=== PATIENT | male | born 1990 | race Caucasian/White ===

== ENCOUNTER 2017-09-22 11:35 | Emergency (ER) | payer SELFPAY ==
--- NOTE | 2017-09-22 12:26 | ER Document Report ---
ED General - General Chief Complaint: Flank Pain Stated Complaint: BACK PAIN Time Seen by Provider: 09/22/17 12:19 Mode of Arrival: Ambulatory Information source: Patient Notes: 27-year-old male presents with right flank pain remains the groin with blood in his urine. Patient notes symptoms initially started on Thursday with flank pain the blood started on Thursday. Patient notes the blood is intermittent. He denies any fevers or chills nausea vomiting or diarrhea TRAVEL OUTSIDE OF THE [place] IN LAST 30 DAYS: No - HPI Onset: Other Onset/Duration: Intermittent, Waxing and waning Quality of pain: Sharp Severity: Mild Pain Level: 1 Associated symptoms: Other Exacerbated by: Other - Urination Relieved by: Denies Similar symptoms previously: No Recently seen / treated by doctor: No - Related Data Allergies/Adverse Reactions: No Known Allergies Allergy (Verified 09/22/17 11:40) Past Medical History - Social History Smoking Status: Never Smoker Cigarette use (# per day): No Chew tobacco use (# tins/day): No Smoking Education Provided: No Frequency of alcohol use: None Drug Abuse: None Family History: Other - No family history of kidney stones Patient has suicidal ideation: No Patient has homicidal ideation: No Renal/ Medical History: Denies: Hx Peritoneal Dialysis Review of Systems - Review of Systems Notes: REVIEW OF SYSTEMS: CONSTITUTIONAL : Denies fever, chills, or sweats. Denies recent illness. EENT: Denies eye, ear, throat, or mouth pain or symptoms. Denies nasal or sinus congestion or discharge. Denies throat, tongue, or mouth swelling or difficulty swallowing. CARDIOVASCULAR: Denies chest pain. Denies palpitations or racing or irregular heart beat. Denies ankle edema. RESPIRATORY: Denies cough, cold, or chest congestion. Denies shortness of breath, difficulty breathing, or wheezing. GASTROINTESTINAL: Admits to right flank pain GENITOURINARY: Admits to blood with urination MUSCULOSKELETAL: Denies back or neck pain or stiffness. Denies joint pain or swelling. SKIN: Denies rash, lesions or sores. HEMATOLOGIC : Denies easy bruising or bleeding. LYMPHATIC: Denies swollen, enlarged glands. NEUROLOGICAL: Denies confusion or altered mental status. Denies passing out or loss of consciousness. Denies dizziness or lightheadedness. Denies headache. Denies weakness or paralysis or loss of use of either side. Denies problems with gait or speech. Denies sensory loss, numbness, or tingling. Denies seizures. PSYCHIATRIC: Denies anxiety or stress. Denies depression, suicidal ideation, or homicidal ideation. ALL OTHER SYSTEMS REVIEWED AND NEGATIVE. Dictation was performed using [employer] voice recognition software PHYSICAL EXAMINATION: GENERAL: Well-appearing, well-nourished and in no acute distress. HEAD: Atraumatic, normocephalic. EYES: Pupils equal round and reactive to light, extraocular movements intact, sclera anicteric, conjunctiva are normal. ENT: Nares patent, oropharynx clear without exudates. Moist mucous membranes. NECK: Normal range of motion, supple without lymphadenopathy LUNGS: Breath sounds clear to auscultation bilaterally and equal. No wheezes rales or rhonchi. HEART: Regular rate and rhythm without murmurs ABDOMEN: Soft, nontender, nondistended abdomen. No guarding, no rebound. No masses appreciated. Musculoskeletal: Normal range of motion, no pitting or edema. No cyanosis. NEUROLOGICAL: Cranial nerves grossly intact. Normal speech, normal gait. Normal sensory, motor exams PSYCH: Normal mood, normal affect. SKIN: Warm, Dry, normal turgor, no rashes or lesions noted. Physical Exam - Vital signs Vitals: Temp Pulse Resp BP Pulse Ox 98.3 F 84 17 133/86 H 96 09/22/17 11:50 09/22/17 11:50 09/22/17 11:50 09/22/17 11:50 09/22/17 11:50 Course - Re-evaluation Re-evalutation: 09/22/17 12:26 Patient has probable kidney stone, CT urinalysis are pending at this time 09/22/17 13:48 Patient's urinalysis is consistent with a kidney stone however but CT did not find any actual imaging of the stone. Patient will be treated as a kidney stone nonetheless and given follow-up with urology for hematuria After performing a Medical Screening Examination, I estimate there is LOW risk for ACUTE APPENDICITIS, BOWEL OBSTRUCTION, ACUTE CHOLECYSTITIS, PERFORATED DIVERTICULITIS, INCARCERATED HERNIA, PANCREATITIS, TESTICULAR TORSION or PERFORATED ULCER, thus I consider the discharge disposition reasonable. Also, there is no evidence or peritonitis, sepsis, or toxicity. I have reevaluated this patient multiple times and no significant life threatening changes are noted. The patient and I have discussed the diagnosis and risks, and we agree with discharging home with close follow-up with the understanding that symptoms and presentations can change. We also discussed returning to the Emergency Department immediately if new or worsening symptoms occur. We have discussed the symptoms which are most concerning (e.g., bloody stool, fever, changing or worsening pain, intractable vomiting - standard verbal up date) that necessitate immediate return. - Vital Signs Vital signs: Temp Pulse Resp BP Pulse Ox 98.9 F 77 18 149/81 H 99 09/22/17 13:40 09/22/17 13:40 09/22/17 13:40 09/22/17 13:40 09/22/17 13:40 - Laboratory Laboratory results interpreted by me: 09/22/17 12:45 Urine Protein 100 H Urine Blood LARGE H - Diagnostic Test Radiology reviewed: Image reviewed, Reports reviewed Discharge - Discharge Clinical Impression: Flank pain Hematuria Qualifiers: Hematuria type: benign essential microscopic Qualified Code(s): R31.1 - Benign essential microscopic hematuria Condition: Stable Disposition: HOME, SELF-CARE Instructions: Abdominal Pain ([facility]), Kidney Stone ([facility]) Prescriptions: Oxycodone HCl [Oxycodone HCl 10 MG Tablet] 1 - 2 tab PO Q6H PRN #15 tablet PRN Reason: PAIN Promethazine HCl [Phenergan 25 mg Tablet] 1 - 2 tab PO Q6H PRN #15 tablet PRN Reason: Referrals: [facility] [Provider Group] - Follow up tomorrow
[2017-09-22 13:11] LABS: APPEARANCE,URINE SLIGHTLY-CLOUDY; BILIRUBIN,URINE NEGATIVE (NEGATIVE); COLOR,URINE YELLOW; GLUCOSE, URINE NEGATIVE (NEGATIVE); KETONES,URINE NEGATIVE (NEGATIVE); LEUKOCYTE ESTERASE,URINE NEGATIVE (NEGATIVE); NITRITE,URINE NEGATIVE (NEGATIVE); PROTEIN,URINE 100 mg/dL (NEGATIVE); URINE SPECIFIC GRAVITY 1.024; UROBILINOGEN,URINE NEGATIVE mg/dL (<2.0)
--- NOTE | 2017-09-22 13:16 | RADIOLOGY REPORT (SQ) ---
EXAM DESCRIPTION: CT LTD RENAL STONE PROTOCOL ON COMPLETED DATE/TIME: 09/22/2017 1:01 pm REASON FOR STUDY: flank pain hematuria COMPARISON: None. TECHNIQUE: CT scan of the abdomen and pelvis performed without intravenous or oral contrast. Images reviewed with lung, soft tissue, and bone windows. Reconstructed coronal and sagittal MPR images revi ewed. All images stored on PACS. All CT scanners at this facility use dose modulation, iterative reconstruction, and/or weight based d osing when appropriate to reduce radiation dose to as low as reasonably achievable (ALARA). [facility]: Dose Right [facility]: CareDose [facility]: Dose Right [facility]: Teradose 4D [facility]: Smart SlideShare RADIATION DOSE: CT Rad equipment meets quality standard of care and radiation dose reduction techniq ues were employed. CTDIvol: 14.2 mGy. DLP: 887 mGy-cm.mGy. LIMITATIONS: None. FINDINGS: LOWER CHEST: No significant findings. No nodules or infiltrates. NON-CONTRASTED LIVER, SPLEEN, ADRENALS: Evaluation limited by lack of IV contrast. No identified sign ificant masses. PANCREAS: No masses. No peripancreatic inflammatory changes. GALLBLADDER: No identified stones by CT criteria. No inflammatory changes to suggest cholecystitis. RIGHT KIDNEY AND URETER: No suspicious masses. Assessment limited by lack of IV contrast. No signif icant calcifications. No hydronephrosis or hydroureter. LEFT KIDNEY AND URETER: No suspicious masses. Assessment limited by lack of IV contrast. No signifi cant calcifications. No hydronephrosis or hydroureter. AORTA AND RETROPERITONEUM: No aneurysm. No retroperitoneal masses or adenopathy. BOWEL AND PERITONEAL CAVITY: No obvious masses or inflammatory changes. No free fluid. APPENDIX: Normal. PELVIS, BLADDER, AND ABDOMINAL WALL:No abnormal masses. No free fluid. Bladder normal. BONES: No significant findings. OTHER: No other significant finding. IMPRESSION: NO SIGNIFICANT OR ACUTE PROCESS IN THE ABDOMEN OR PELVIS. COMMENT: Quality ID # [id number]: Final reports with documentation of one or more dose reduction techniques (e.g., Automated exposure control, adjustment of the mA and/or kV according to patient size, use of iterative reconstruction technique) TECHNICAL DOCUMENTATION: JOB ID: [id number] [employer]- All Rights Reserved Reading location - IP/workstation name: [email or web address]
[2017-09-22 13:41] VITALS: BP 149/81
== END 2017-09-22 13:59 | disposition home or self-care (01) ==
LOC: ER 11:35
DX: R10.9 Unspecified abdominal pain (principal); R31.1 Benign essential microscopic hematuria
CPT/HCPCS: 76380; 81001; 99284

== ENCOUNTER 2017-09-30 09:49 | Emergency (ER) | payer SELFPAY ==
[2017-09-30] MEDS ORDERED: KETOROLAC TROMETHAMINE INJ/PF 30 MG/1 ML SDV IV ONE (11:16)
[2017-09-30 11:27] LABS: ABSOLUTE LYMPHOCYTES (AUTO) 1.4 10^3/uL (0.5-4.7); ABSOLUTE MONOCYTES (AUTO) 0.4 10^3/uL (0.1-1.4); ABSOLUTE NEUT (AUTO) 4.9 10^3/uL (1.7-8.2); BASOPHILS % (AUTO) 0.5 % (0-2); EOSINOPHILS % (AUTO) 0.4 % (0-6); HEMATOCRIT 45.3 % (37.9-51.0); HEMOGLOBIN 15.8 g/dL (13.5-17.0); LYMPHOCYTES % (AUTO) 20.2 % (13-45); MEAN CORPUSCULAR HEMOGLOBIN 28.9 pg (27.0-33.4); MEAN CORPUSCULAR HGB CONC 34.8 g/dL (32.0-36.0); MEAN CORPUSCULAR VOLUME 83 fl (80-97); PLATELET COUNT 231 10^3/uL (150-450); RED BLOOD COUNT 5.46 10^6/uL (4.35-5.55); RED CELL DISTRIBUTION WIDTH 13.3 % (11.5-14.0); SEGMENTED NEUTROPHILS % (AUTO) 72.9 % (42-78); TOTAL CELLS COUNTED % (AUTO) 100 %; WHITE BLOOD COUNT 6.7 10^3/uL (4.0-10.5)
[2017-09-30] MEDS: NORMAL SALINE 1000 ML 1,000 ML IV PRN ×2 (11:32→11:33)
[2017-09-30] MEDS ORDERED: NORMAL SALINE 1000 ML 1,000 ML IV PRN (11:41)
[2017-09-30 11:46] LABS: ALANINE AMINOTRANSFERASE 56 U/L (21-72); ALBUMIN 4.8 g/dL (3.5-5.0); ALKALINE PHOSPHATASE 57 U/L (38-126); ANION GAP 11 (5-19); ASPARTATE AMINO TRANSFERASE 31 U/L (17-59); BILIRUBIN,DIRECT 0.2 mg/dL (0.0-0.4); BILIRUBIN,TOTAL 0.5 mg/dL (0.2-1.3); BLOOD UREA NITROGEN 13 mg/dL (7-20); CALCIUM 9.9 mg/dL (8.4-10.2); CARBON DIOXIDE 29 mmol/L (22-30); CHLORIDE 102 mmol/L (98-107); CREATINE KINASE 212 U/L (55-170); GLUCOSE 96 mg/dL (75-110); LIPASE 45.9 U/L (23-300); POTASSIUM 4.7 mmol/L (3.6-5.0); SODIUM 141.5 mmol/L (137-145); TOTAL PROTEIN 7.4 g/dL (6.3-8.2)
[2017-09-30 12:29] LABS: APPEARANCE,URINE CLEAR; BILIRUBIN,URINE NEGATIVE (NEGATIVE); COLOR,URINE YELLOW; GLUCOSE, URINE NEGATIVE (NEGATIVE); KETONES,URINE NEGATIVE (NEGATIVE); LEUKOCYTE ESTERASE,URINE NEGATIVE (NEGATIVE); NITRITE,URINE NEGATIVE (NEGATIVE); PROTEIN,URINE NEGATIVE (NEGATIVE); UROBILINOGEN,URINE NEGATIVE mg/dL (<2.0)
[2017-09-30 12:47] LABS: URINE AMPHETAMINES SCREEN NEGATIVE; URINE BARBITURATES SCREEN NEGATIVE; URINE BENZODIAZEPINES SCREEN NEGATIVE; URINE COCAINE SCREEN UNCONFIRMED POSITIVE; URINE MARIJUANA (THC) SCREEN NEGATIVE; URINE METHADONE SCREEN NEGATIVE; URINE PHENCYCLIDINE SCREEN NEGATIVE
--- NOTE | 2017-09-30 13:00 | ER Document Report ---
ED General - General Chief Complaint: Flank Pain Stated Complaint: POSSIBLE KIDNEY STONE Time Seen by Provider: 09/30/17 10:56 TRAVEL OUTSIDE OF THE [place] IN LAST 30 DAYS: No - HPI Patient complains to provider of: Abdominal pain hematuria Notes: Patient coming in for abdominal pain hematuria. Patient states she was seen approximately 1 week ago diagnosed with a kidney stone. Patient states he has been taking the prescribed pain medication however pain continues hematuria continues. Patient states hematuria has improved somewhat but still intermittent episodes of peeing blood. Denies any trauma. Denies fevers chills nausea vomiting diarrhea states intermittent abdominal pain is more diffuse occurring in separate areas of the abdomen each time. Patient states is crampy states he has had intermittent blood in his stool however nothing recently. Patient denies a family history of IBS IBD or other GI etiologies. Patient denies alcohol smoking and illicit drug use. Patient does not trauma however states increased physical activity over the last few weeks - Related Data Allergies/Adverse Reactions: No Known Allergies Allergy (Verified 09/30/17 09:59) Past Medical History - Social History Smoking Status: Never Smoker Frequency of alcohol use: None Drug Abuse: Marijuana Family History: Other - No family history of kidney stones Patient has suicidal ideation: No Patient has homicidal ideation: No Renal/ Medical History: Reports: Hx Kidney Stones. Denies: Hx Peritoneal Dialysis Review of Systems - Review of Systems Constitutional: No symptoms reported EENT: No symptoms reported Cardiovascular: No symptoms reported Respiratory: No symptoms reported Gastrointestinal: Abdominal pain Genitourinary: Hematuria Male Genitourinary: No symptoms reported Musculoskeletal: No symptoms reported Skin: No symptoms reported Hematologic/Lymphatic: No symptoms reported Neurological/Psychological: No symptoms reported -: Yes All other systems reviewed and negative Physical Exam - Vital signs Vitals: Temp Pulse Resp BP Pulse Ox 98.8 F 85 18 126/85 H 99 09/30/17 10:16 09/30/17 10:16 09/30/17 10:16 09/30/17 10:16 09/30/17 10:16 Interpretation: Normal - General General appearance: Appears well, Alert - HEENT Head: Normocephalic, Atraumatic Eyes: Normal Pupils: PERRL - Respiratory Respiratory status: No respiratory distress Chest status: Nontender Breath sounds: Normal Chest palpation: Normal - Cardiovascular Rhythm: Regular Heart sounds: Normal auscultation Murmur: No - Abdominal Inspection: Normal Distension: No distension Bowel sounds: Normal Tenderness: Nontender Organomegaly: No organomegaly - Back Back: Normal, Nontender - Extremities General upper extremity: Normal inspection, Nontender, Normal color, Normal ROM , Normal temperature General lower extremity: Normal inspection, Nontender, Normal color, Normal ROM , Normal temperature, Normal weight bearing. No: Vickey's sign - Neurological Neuro grossly intact: Yes Cognition: Normal Orientation: AAOx4 [place] Coma Scale Eye Opening: Spontaneous Mary Coma Scale Verbal: Oriented Mary Coma Scale Motor: Obeys Commands Mary Coma Scale Total: 15 Speech: Normal Motor strength normal: LUE, RUE, LLE, RLE Sensory: Normal - Psychological Associated symptoms: Normal affect, Normal mood - Skin Skin Temperature: Warm Skin Moisture: Dry Skin Color: Normal Course - Re-evaluation Re-evalutation: 09/30/17 14:36 Laboratory studies not show any significant pathology. Patient was positive for opiates and cocaine. Possible reason for abdominal pain and hematuria. Also possible reason would be the patient's increased activity causing slight hematuria or just dark urine which is mistaken for hematuria. Patient was given IV fluids with 2 L eventually need up with the patient giving us a urine sample. Patient was educated to stop using illicit substances. As far as patient's abdominal pain more consistent with possible IBS. Patient would need to follow-up primary care physician will treat him currently at this time with [facility]. Patient was grateful for his care and was discharged home. The patient presents with abdominal pain without signs of peritonitis or other life- threatening or serious etiology. The patient appears stable for discharge and has been instructed to return immediately if the symptoms worsen in any way, or in 8-12hr if not improved for re-evaluation. The patient has been instructed to return if the symptoms worsen or change in any way. - Vital Signs Vital signs: Temp Pulse Resp BP Pulse Ox 97.9 F 66 18 151/79 H 100 09/30/17 13:11 09/30/17 13:11 09/30/17 13:11 09/30/17 13:11 09/30/17 13:11 - Laboratory Result Diagrams: 09/30/17 11:13 09/30/17 11:13 Laboratory results interpreted by me: 09/30/17 11:13 Creatine Kinase 212 H Discharge - Discharge Clinical Impression: Abdominal pain Qualifiers: Abdominal location: unspecified location Qualified Code(s): R10.9 - Unspecified abdominal pain Disposition: HOME, SELF-CARE Instructions: Abdominal Pain ([facility]), Antispasmodics ([facility]), Gastroenterology Additional Instructions: Your laboratory studies today do not show any significant pathology for your hematuria or your abdominal pain. He may have underlying irritable bowel syndrome. We will treat her abdominal pain with Bentyl. I will highly recommend avoiding any illicit substances or drinking excessive alcohol. Please make sure you drink plenty of fluids to stay hydrated return to the ER symptoms worsen Prescriptions: Dicyclomine HCl [Bentyl 20 mg Tablet] 20 mg PO QID #30 tablet Forms: Return to Work
[2017-09-30 13:13] VITALS: BP 151/79
== END 2017-09-30 13:12 | disposition home or self-care (01) ==
LOC: ER 09:49
DX: R10.9 Unspecified abdominal pain (principal); R31.9 Hematuria, unspecified
CPT/HCPCS: 99284; 96361; 96374; 36415; 82550; 83690; 85025; 80053; 81001; 80307; J1885; J7030

== ENCOUNTER 2018-04-12 15:45 | Emergency (ER) | payer SELFPAY ==
[2018-04-12 17:26] VITALS: BP 124/78
[2018-04-12] MEDS ORDERED: NORMAL SALINE 1000 ML 1,000 ML IV ONE (17:44)
--- NOTE | 2018-04-12 17:46 | ER Document Report ---
ED GI/ - General Chief Complaint: Vomiting Stated Complaint: VOMITING, HEAD PRESSURE Time Seen by Provider: 04/12/18 17:37 Mode of Arrival: Ambulatory Notes: Chief complaint: Nausea vomiting History of complain:( obtained from----patient) 28 years old male presents today with nausea vomiting vomited a few times unable to keep anything down for the last few hours, had not had any bowel movement more than 4 days. Uses recreational Percocet. Had headache and general malaise. Denies any blurring of vision earache sore throat neck pain neck stiffness chest pain shortness of breath. Denies any dysuria frequency urgency Onset: Gradual Duration: Last few hours Severity: Moderate Quality: As above Context: As above Exacerbating factor and relieving factors: None REVIEW OF SYSTEMS: CONSTITUTIONAL : Denies fever, chills, or sweats. Denies recent illness. EENT: Denies eye, ear, throat, or mouth pain or symptoms. Denies nasal or sinus congestion or discharge. Denies throat, tongue, or mouth swelling or difficulty swallowing. CARDIOVASCULAR: Denies chest pain. Denies palpitations or racing or irregular heart beat. Denies ankle edema. RESPIRATORY: Denies cough, cold, or chest congestion. Denies shortness of breath, difficulty breathing, or wheezing. GASTROINTESTINAL: Denies distention. Denies nausea, vomiting, or diarrhea. Denies blood in vomitus, stools, or per rectum. Denies black, tarry stools. Denies constipation. GENITOURINARY: Denies difficulty urinating, painful urination, burning, frequency, blood in urine, or discharge. FEMALE GENITOURINARY: Denies vaginal bleeding, heavy or abnormal periods, irregular periods. Denies vaginal discharge or odor. MUSCULOSKELETAL: Denies back or neck pain or stiffness. Denies joint pain or swelling. SKIN: Denies rash, lesions or sores. HEMATOLOGIC : Denies easy bruising or bleeding. LYMPHATIC: Denies swollen, enlarged glands. NEUROLOGICAL: Denies confusion or altered mental status. Denies passing out or loss of consciousness. Denies dizziness or lightheadedness. Denies headache. Denies weakness or paralysis or loss of use of either side. Denies problems with gait or speech. Denies sensory loss, numbness, or tingling. Denies seizures. PSYCHIATRIC: Denies anxiety or stress. Denies depression, suicidal ideation, or homicidal ideation. ALL OTHER SYSTEMS REVIEWED AND NEGATIVE. PHYSICAL EXAMINATION: GENERAL: Well-appearing, well-nourished and in no acute distress. HEAD: Atraumatic, normocephalic. EYES: Pupils equal round and reactive to light, extraocular movements intact, conjunctiva are normal. ENT: Nares patent, oropharynx clear without exudates. Moist mucous membranes. NECK: Normal range of motion, supple without lymphadenopathy LUNGS: Breath sounds clear to auscultation bilaterally and equal. No wheezes rales or rhonchi. HEART: Regular rate and rhythm without murmurs ABDOMEN: Soft, nontender, nondistended abdomen. No guarding, no rebound. No masses appreciated. Examination of genitals-deferred Musculoskeletal: Normal range of motion, no pitting or edema. No cyanosis. NEUROLOGICAL: Cranial nerves grossly intact. Normal speech, normal gait. Normal sensory, motor exams PSYCH: Normal mood, normal affect. SKIN: Warm, Dry, normal turgor, no rashes or lesions noted. Dictation was performed using [employer] voice recognition software TRAVEL OUTSIDE OF THE [place] IN LAST 30 DAYS: No - Related Data Allergies/Adverse Reactions: No Known Allergies Allergy (Verified 04/12/18 15:47) Past Medical History - Social History Smoking Status: Never Smoker Chew tobacco use (# tins/day): No Frequency of alcohol use: None Drug Abuse: None Lives with: Family Family History: Reviewed & Not Pertinent, Other - No family history of kidney stones Patient has suicidal ideation: No Patient has homicidal ideation: No Renal/ Medical History: Reports: Hx Kidney Stones. Denies: Hx Peritoneal Dialysis Review of Systems - Review of Systems Notes: Dictated Physical Exam - Vital signs Vitals: Temp Pulse Resp BP Pulse Ox 99.1 F 105 H 16 124/78 100 04/12/18 17:24 04/12/18 17:24 04/12/18 17:24 04/12/18 17:24 04/12/18 17:24 - Notes Notes: Dictated Course - Vital Signs Vital signs: Temp Pulse Resp BP Pulse Ox 99.1 F 105 H 16 124/78 100 04/12/18 17:24 04/12/18 17:24 04/12/18 17:24 04/12/18 17:24 04/12/18 17:24
--- NOTE | 2018-04-12 18:25 | RADIOLOGY REPORT (SQ) ---
EXAM DESCRIPTION: KUB/ABDOMEN (SINGLE VIEW) COMPLETED DATE/TIME: 04/12/2018 6:05 pm REASON FOR STUDY: Nausea vomiting COMPARISON: None. NUMBER OF VIEWS: One view. TECHNIQUE: Supine radiographic image of the abdomen acquired. LIMITATIONS: None. FINDINGS: BOWEL GAS PATTERN: Normal bowel gas pattern. No dilated loops. CALCIFICATIONS: No suspicious calcifications. SOFT TISSUES: No gross mass or suggestion of organomegaly. HARDWARE: None in the abdomen. BONES: No acute fracture. No worrisome bone lesions. OTHER: No other significant finding. IMPRESSION: NO RADIOGRAPHIC EVIDENCE FOR ACUTE ABDOMINAL DISEASE. TECHNICAL DOCUMENTATION: JOB ID: [id number] [employer]- All Rights Reserved Reading location - IP/workstation name: [email or web address]
== END 2018-04-12 18:52 | disposition left against medical advice (07) ==
LOC: ER 15:45
DX: R11.2 Nausea with vomiting, unspecified (principal)
CPT/HCPCS: 74018; 99281

== ENCOUNTER 2018-10-17 20:53 | Inpatient (IN) | payer SELFPAY ==
[2018-10-17] MEDS ORDERED: RINGERS SOLUTION,LACTATED 1,000 ML IV ONE (22:10)
[2018-10-17] MEDS ORDERED: LIDOCAINE 1%/EPINEPHRINE INJ 20 ML VIAL INJ ONE (22:22)
[2018-10-17] MEDS ORDERED: LIDOCAINE 1% INJ-PF (10 MG/ML) 30 ML SDV INJ ONE (22:22)
[2018-10-17] MEDS ORDERED: KETAMINE HCL INJ 500 MG/10 ML VIAL IV ONE ×2 (22:22→23:01)
[2018-10-17] MEDS ORDERED: VANCOMYCIN HCL INJ 1000 MG VIAL IV ONE (22:23)
[2018-10-17] MEDS ORDERED: CEFTRIAXONE INJ 1000 MG VIAL IV ONE (22:23)
--- NOTE | 2018-10-17 22:36 | RADIOLOGY REPORT (SQ) ---
EXAM DESCRIPTION: XR FOREARM 2 VIEWS COMPLETED DATE/TME: 10/17/2018 21:36 CLINICAL HISTORY: 28 years, Male, swelling COMPARISON: None. NUMBER OF VIEWS: 3 TECHNIQUE: 3 view left forearm LIMITATIONS: None. FINDINGS: Soft tissue swelling along the ulnar aspect of the forearm. No soft tissue gas. No fracture. No radiopaque foreign body IMPRESSION: Soft tissue swelling as above copyright 2010 [employer]- All Rights Reserved
[2018-10-17] MEDS ORDERED: KETAMINE HCL INJ 500 MG/10 ML VIAL ONE (22:42)
[2018-10-17 22:57] LABS: ABSOLUTE EOSINOPHILS # (AUTO) 0.1 10^3/uL (0.0-0.6); ABSOLUTE MONOCYTES (AUTO) 0.7 10^3/uL (0.1-1.4); ABSOLUTE NEUT (AUTO) 7.9 10^3/uL (1.7-8.2); BASOPHILS % (AUTO) 0.3 % (0-2); EOSINOPHILS % (AUTO) 0.5 % (0-6); HEMATOCRIT 34.7 % (37.9-51.0); HEMOGLOBIN 12.2 g/dL (13.5-17.0); LYMPHOCYTES % (AUTO) 18.5 % (13-45); MEAN CORPUSCULAR HEMOGLOBIN 28.3 pg (27.0-33.4); MEAN CORPUSCULAR HGB CONC 35.2 g/dL (32.0-36.0); MEAN CORPUSCULAR VOLUME 80 fl (80-97); MONOCYTES % (AUTO) 6.2 % (3-13); PLATELET COUNT 266 10^3/uL (150-450); RED BLOOD COUNT 4.33 10^6/uL (4.35-5.55); RED CELL DISTRIBUTION WIDTH 13.1 % (11.5-14.0); SEGMENTED NEUTROPHILS % (AUTO) 74.5 % (42-78); TOTAL CELLS COUNTED % (AUTO) 100 %; WHITE BLOOD COUNT 10.6 10^3/uL (4.0-10.5)
[2018-10-17] MEDS ORDERED: ONDANSETRON HCL INJ/PF 4 MG/2 ML SDV IV ONE (23:06)
[2018-10-17] MEDS ORDERED: ONDANSETRON HCL INJ/PF 4 MG/2 ML SDV ONE (23:06)
[2018-10-17 23:07] LABS: ALANINE AMINOTRANSFERASE 30 U/L (21-72); ALBUMIN 4.1 g/dL (3.5-5.0); ALKALINE PHOSPHATASE 83 U/L (38-126); ANION GAP 9 (5-19); ASPARTATE AMINO TRANSFERASE 19 U/L (17-59); BILIRUBIN,DIRECT 0.1 mg/dL (0.0-0.4); BILIRUBIN,TOTAL 0.4 mg/dL (0.2-1.3); BLOOD UREA NITROGEN 15 mg/dL (7-20); CALCIUM 9.5 mg/dL (8.4-10.2); CARBON DIOXIDE 32 mmol/L (22-30); CHLORIDE 98 mmol/L (98-107); GLUCOSE 96 mg/dL (75-110); POTASSIUM 4.4 mmol/L (3.6-5.0); SODIUM 139.3 mmol/L (137-145); TOTAL PROTEIN 7.5 g/dL (6.3-8.2)
--- NOTE | 2018-10-17 23:31 | ER Document Report ---
Doctor's Note Notes: 10/17/18 23:20 I was consulted by the physician bilingual office assistant caring for this patient. I did go to the bedside, patient was noted to have an extensive sialitis from the level of the wrist all the way up to the axilla with associated axillary lymphadenopathy in the left side. Bedside ultrasound was done in the mid forearm where there appeared to be an area of fluctuance that demonstrated a large abscess. Given the size of the abscess as well as the extensive surrounding cellulitis I did not feel the patient was able to tolerate this procedure while awake. The patient was therefore provided ketamine for procedural sedation. The area was incised and drained with copious debridement and irrigation followed by packing. Approximately 20-25 cc of purulent drainage was expressed. Patient tolerated the procedure and sedation well without any complications. Patient has been started on ceftriaxone and vancomycin. The patient will require hospitalization given the degree of cellulitis and the extensive nature of the abscess. Procedures - Conscious Sedation Conscious sedation Time started: 20:53 Time completed: 21:10 Consent obtained: Yes Indication: Incision and drainage of large forearm abscess Prior complications: Procedural sedation Normal healthy pt.: P1. - ASA Classification Airway Evaluation: Normal anatomy Mallampati Classification: Class 1 Used during procedure: Suction available, IV access obtained, Pulse ox on pt., compliance monitor on pt. Medications administered: Ketamine Reversal agents: None I personally performed/intraservice time: Sedation, Procedure Complications: No - Incision and Drainage Left Arm Type: Complex Anesthetic type: 1% Lidocaine w/epi mL's of anesthetic: 8 Blade size: 11 I&D procedure: Chlorprep applied, Iodoform packing placed, Sterile dressing applied Incision Method: Incision made by scalpel Amount/type of drainage: 20-25 cc purulent drainage
--- NOTE | 2018-10-17 23:35 | ER Document Report ---
ED Skin Rash/Insect Bite/Abscs - General Chief Complaint: Abscess Stated Complaint: ABSCESS Time Seen by Provider: 10/17/18 21:30 Notes: Patient is a 28-year-old male presents to the emergency department for generalized redness and swelling noted to his left forearm. Patient states he was moving his krill earlier today and thinks he may have scratched his left forearm. Patient states he has noted the redness and swelling had increased in the last 3 hours which is why he presents to the emergency room. Patient does admit to past IV drug use but states he has not used in the past month. Patient's denying any fever, chills. Patient states he did have an abscess like this many years ago on his lower extremity stated he did not have to be admitted nor did he have to have IV antibiotics for same. Past medical history: None Medications: None Allergies: None TRAVEL OUTSIDE OF THE [place] IN LAST 30 DAYS: No - Related Data Allergies/Adverse Reactions: No Known Allergies Allergy (Verified 04/12/18 15:47) Past Medical History - General Information source: Patient - Social History Smoking Status: Never Smoker Frequency of alcohol use: None Drug Abuse: Heroin, Prescription drugs Family History: Reviewed & Not Pertinent, Other - No family history of kidney stones Patient has suicidal ideation: No Patient has homicidal ideation: No Renal/ Medical History: Reports: Hx Kidney Stones. Denies: Hx Peritoneal Dialysis Review of Systems - Review of Systems Constitutional: denies: Fever EENT: No symptoms reported Cardiovascular: No symptoms reported Respiratory: No symptoms reported Gastrointestinal: No symptoms reported Genitourinary: No symptoms reported Male Genitourinary: No symptoms reported Musculoskeletal: See HPI Skin: See HPI Hematologic/Lymphatic: No symptoms reported Neurological/Psychological: No symptoms reported Physical Exam - Vital signs Vitals: Temp Pulse Resp BP Pulse Ox 98.9 F 115 H 19 141/95 H 98 10/17/18 21:09 10/17/18 21:09 10/17/18 21:09 10/17/18 21:09 10/17/18 21:09 - Notes Notes: GENERAL: Alert, interacts well. No acute distress. HEAD: Normocephalic, atraumatic. EYES: Pupils equal, round, and reactive to light. Extraocular movements intact. ENT: Oral mucosa moist, tongue midline. NECK: Full range of motion. Supple. Trachea midline. LUNGS: Clear to auscultation bilaterally, no wheezes, rales, or rhonchi. No respiratory distress. HEART: Regular rate and rhythm. No murmur ABDOMEN: Soft, non-tender. Non-distended. Bowel sounds present in all 4 quadrants. EXTREMITIES: Moves all 4 extremities spontaneously. normal radial and dorsalis pedis pulses bilaterally. No cyanosis. Erythema and swelling noted left middle medial forearm measuring 15 cm x 15cm with erythema noted slightly traveling towards axillary region. FROM Left elbow and wrist. BACK: no cervical, thoracic, lumbar midline tenderness. No saddle anesthesia, normal distal neurovascular exam. NEUROLOGICAL: Alert and oriented x3. Normal speech. cranial nerves II through XII grossly intact PSYCH: Normal affect, normal mood. SKIN: Warm, dry, normal turgor. Course - Re-evaluation Re-evalutation: Patient presents to the emergency department with an extensive abscess noted to his left forearm. Discussed this case with my attending Dr. Freire who did a bedside ultrasound. Dr. Freire recommends conscious sedation with incision and drain at bedside. Also discussed IV antibiotic use and admission for continued IV antibiotic care. Surgeon Dr. Holley was contacted and has come to the emergency department to evaluate the patient. States he will admit the patient for continued care and take him to the operating room for continued debridement. - Vital Signs Vital signs: Temp Pulse Resp BP Pulse Ox 98 F 94 14 112/60 95 10/18/18 06:49 10/18/18 07:04 10/18/18 07:04 10/18/18 07:04 10/18/18 07:04 - Laboratory Result Diagrams: 10/17/18 22:39 10/17/18 22:39 Laboratory results interpreted by me: 10/17/18 10/17/18 22:39 22:39 WBC 10.6 H RBC 4.33 L Hgb 12.2 L Hct 34.7 L Carbon Dioxide 32 H Procedures - Incision and Drainage forearm Type: Simple Anesthetic type: 1% Lidocaine mL's of anesthetic: 10 Blade size: 11 I&D procedure: Betadine prep applied, Iodoform packing placed, Sterile dressing applied Incision Method: Incision made by scalpel Amount/type of drainage: Copious purulent Discharge - Discharge Clinical Impression: Abscess Cellulitis Qualifiers: Site of cellulitis: extremity Site of cellulitis of extremity: upper extremity Laterality: left Qualified Code(s): L03.114 - Cellulitis of left upper limb Condition: Stable Disposition: ADMITTED INPATIENT Admitting Provider: Surgicalist - Dr. Holley Unit Admitted: Surgical Floor
[2018-10-18] MEDS ORDERED: KETAMINE HCL INJ 500 MG/10 ML VIAL IV ONE (00:15)
[2018-10-18] MEDS ORDERED: DEXTROSE 40% GEL 15 GM TUBE PO PRN ×2 (00:51)
[2018-10-18] MEDS ORDERED: POTASSI CL 20 MEQ/1/2NS 1L 20 MEQ/1,000 ML RTUINJ IV PRN (00:51)
[2018-10-18] MEDS ORDERED: GLUCAGON,HUMAN RECOMB 1 MG INJ SUBCUT PRN (00:51)
[2018-10-18] MEDS ORDERED: DEXTROSE 50%-WATER 25 GM/50 ML DISP.SYRIN IV PRN ×2 (00:51)
--- NOTE | 2018-10-18 00:51 | PDOC CONSULTATION ---
Consultation Consult Date: 10/18/18 Attending physician:: NIMA NEWBY Consult reason:: left arm abscess History of Present Illness Admission Date/PCP: 10/17/18 23:41 History of Present Illness: RIP BERTRAND is a 28 year old male with hx of ivda c/o swelling in left arm starting approx 12hrs prior to admission in er. c/o pain and decreased and fever and reddness of left forarm denies any recent injections however states he did inject into left arm approx 2 wks ago Past Medical History Cardiac Medical History: Reports: None Pulmonary Medical History: Reports: None EENT Medical History: Reports: None Neurological Medical History: Reports: None Past Surgical History Past Surgical History: Reports: None Social History Smoking Status: Never Smoker Family History Family History: Reviewed & Not Pertinent, Other - No family history of kidney stones Parental Family History Reviewed: No Children Family History Reviewed: No Sibling(s) Family History Reviewed.: No Medication/Allergy Home Medications: Oxycodone HCl [Oxycodone HCl 10 MG Tablet] 1 - 2 tab PO Q6H PRN #15 tablet 09/22/17 Promethazine HCl [Phenergan 25 mg Tablet] 1 - 2 tab PO Q6H PRN #15 tablet 09/22/17 Dicyclomine HCl [Bentyl 20 mg Tablet] 20 mg PO QID #30 tablet 09/30/17 Allergies/Adverse Reactions: No Known Allergies Allergy (Verified 04/12/18 15:47) Review of Systems Constitutional: PRESENT: fever(s), weakness Eyes: PRESENT: other - no vision changes Nose, Mouth, and Throat: PRESENT: other - no sore throat Breasts: PRESENT: other - no breast masses Cardiovascular: PRESENT: other - no chest pain Respiratory: PRESENT: other - no cough or sob Gastrointestinal: PRESENT: other - no abd pain Musculoskeletal: PRESENT: other - pain left forarm Neurological: PRESENT: other - no focal weakness Psychiatric: PRESENT: other Endocrine: PRESENT: other - no cold or heat intolerance Hematologic/Lymphatic: PRESENT: other - no easy brusing Physical Exam Vital Signs: Temp Pulse Resp BP Pulse Ox 98.9 F 105 H 17 149/89 H 100 10/17/18 21:09 10/17/18 23:25 10/17/18 23:25 10/17/18 23:25 10/17/18 23:25 Intake & Output 10/16/18 10/17/18 10/18/18 06:59 06:59 06:59 Intake Total 1999 Balance 2000 Weight 105.1 kg General appearance: PRESENT: mild distress Head exam: PRESENT: atraumatic Eye exam: PRESENT: EOMI Ear exam: PRESENT: normal external ear exam Mouth exam: PRESENT: dry mucosa Neck exam: PRESENT: full ROM Respiratory exam: PRESENT: clear to auscultation tanna Cardiovascular exam: PRESENT: RRR Pulses: PRESENT: normal radial pulses, normal femoral pulses Vascular exam: PRESENT: normal capillary refill GI/Abdominal exam: PRESENT: soft Rectal exam: PRESENT: deferred Extremities exam: PRESENT: other - left forearm with large abscess and cellulitis on dorsal/medial forearm with celluliltis extending from wrist to antecubital fossa stellate incision done by er physician small with clotted blood pus draining upon compression of forearm Results Laboratory Results: 10/17/18 22:39 10/17/18 22:39 10/17/18 10/17/18 22:39 22:39 WBC 10.6 H RBC 4.33 L Hgb 12.2 L Hct 34.7 L MCV 80 MCH 28.3 MCHC 35.2 RDW 13.1 Plt Count 266 Seg Neutrophils % 74.5 Lymphocytes % 18.5 Monocytes % 6.2 Eosinophils % 0.5 Basophils % 0.3 Absolute Neutrophils 7.9 Absolute Lymphocytes 2.0 Absolute Monocytes 0.7 Absolute Eosinophils 0.1 Absolute Basophils 0.0 Sodium 139.3 Potassium 4.4 Chloride 98 Carbon Dioxide 32 H Anion Gap 9 BUN 15 Creatinine 0.84 Est GFR ( Amer) > 60 Est GFR (Non-Af Amer) > 60 Glucose 96 Calcium 9.5 Total Bilirubin 0.4 AST 19 ALT 30 Alkaline Phosphatase 83 Total Protein 7.5 Albumin 4.1 Impressions: Forearm X-Ray 10/17/18 21:36 IMPRESSION: Soft tissue swelling as above copyright 2011 [email or web address]- All Rights Reserved Assessment & Plan - Diagnosis (2) Cellulitis Qualifiers: Site of cellulitis: extremity Site of cellulitis of extremity: upper extremity Laterality: left Qualified Code(s): L03.114 - Cellulitis of left upper limb - Plan Summary Plan Summary: left forarm abscess plan for admission for iv abx and incision and drainage of forarm abscess I discussed risks benifits of procedure inculding nerve injury, bleeding ongoing infection weakness of hand post op need for additional surgery he understands and agrees to proceed.
[2018-10-18] MEDS ORDERED: [UNRECOGNIZED DRUG - OTHER] IV ONE (02:00)
[2018-10-18] MEDS ORDERED: CEFTRIAXONE IV ONE (02:00)
[2018-10-18] MEDS ORDERED: DIPH/PERTUSS(ACELL)/TETANUS VAC/PF 0.5 ML SYR (>=10YO) IM ONE (03:28)
[2018-10-18] MEDS: NORMAL SALINE 1000 ML 1,000 ML IV PRN ×2 (04:29→14:47)
[2018-10-18] MEDS ORDERED: BUPIVACAINE HCL 0.25% /EPINEPHRINE INJ/PF 30 ML SDV ONE (05:21)
[2018-10-18] MEDS ORDERED: FENTANYL CITRATE INJ/PF 100 MCG/2 ML AMPUL ONE ×2 (05:27→06:56)
[2018-10-18] MEDS ORDERED: MIDAZOLAM 2 MG/2 ML INJ ONE (05:28)
[2018-10-18] MEDS ORDERED: DEXMEDETOMIDINE INJ 80 MCG/20 ML VIAL IV ONE (05:28)
[2018-10-18] MEDS ORDERED: PROPOFOL INJ 200 MG/20 ML VIAL IV ONE (05:28)
[2018-10-18] MEDS ORDERED: ACETAMINOPHEN 1,000 MG/100 ML RTUPB IV ONE (05:28)
--- NOTE | 2018-10-18 06:38 | Operative Report ---
Nonrecallable Operative Report DATE OF SURGERY: 10/18/18 Operative Report: t PREOPERATIVE DIAGNOSIS: left forarm abscess POSTOPERATIVE DIAGNOSIS: left forarm abscess OPERATION: incision and drainage of left forarm abscess SURGEON: NIMA NEWBY ANESTHESIA: GA COMPLICATIONS: none ESTIMATED BLOOD LOSS: 20cc INTRAOPERATIVE FINDINGS: see dictation PROCEDURE: see dictation
[2018-10-18] MEDS ORDERED: PROMETHAZINE HCL INJ 25 MG/1 ML VIAL IV PRN ×2 (06:42)
[2018-10-18] MEDS ORDERED: FENTANYL CITRATE INJ/PF 100 MCG/2 ML AMPUL IV PRN ×3 (06:42)
[2018-10-18] MEDS ORDERED: DIPHENHYDRAMINE HCL 50 MG/ML VIAL IV PRN (06:42)
[2018-10-18] MEDS ORDERED: ONDANSETRON HCL INJ/PF 4 MG/2 ML SDV IV PRN (06:42)
[2018-10-18] MEDS ORDERED: MEPERIDINE HCL/PF INJ 25 MG/1 ML DISP.SYRIN IV PRN (06:42)
[2018-10-18] MEDS ORDERED: OXYCODONE HCL PO PRN (08:30)
[2018-10-18] MEDS ORDERED: PROMETHAZINE HCL 25 MG TABLET PO PRN (08:30)
[2018-10-18] MEDS: FAMOTIDINE INJ/PF 20 MG/2 ML SDV IV SCH ×2 (09:49→21:11)
[2018-10-18] MEDS ORDERED: DICYCLOMINE HCL 20 MG TABLET PO SCH (10:00)
[2018-10-18] MEDS ORDERED: VANCOMYCIN HCL 1,000 MG in DEXTROSE 5%-WATER 250 ML IV SCH (10:00)
[2018-10-18] MEDS ORDERED: CEFTRIAXONE SODIUM 750 MG in DEXTROSE 5%-WATER 50 ML IV SCH ×2 (10:00→22:00)
[2018-10-18] MEDS ORDERED: LIDOCAINE 2% INJ-PF (20 MG/ML) 2 ML AMPUL ONE (10:18)
[2018-10-18] MEDS ORDERED: DEXAMETHASONE SOD PHOSPHATE INJ 4 MG/1 ML VIAL ONE (10:18)
[2018-10-18] MEDS ORDERED: ONDANSETRON HCL INJ/PF 4 MG/2 ML SDV ONE (10:18)
[2018-10-18] MEDS ORDERED: METOCLOPRAMIDE HCL INJ/PF 10 MG/2 ML SDV ONE (10:18)
[2018-10-18] MEDS ORDERED: KETOROLAC TROMETHAMINE 60 MG/2 ML SDV ONE (10:18)
--- NOTE | 2018-10-18 11:29 | OPERATIVE REPORT E ---
Operative Report NAME: RIP BERTRAND : 1990 AGE: 28Y DATE OF SURGERY: 10/18/2018 ROOM: 406 PREOPERATIVE DIAGNOSIS: Left forearm abscess. POSTOPERATIVE DIAGNOSIS: Left forearm abscess. OPERATIVE PROCEDURE: Incision and drainage left forearm abscess. SURGEON: NIMA NEWBY M.D. PROCEDURE: The patient was brought into the operating room awake, alert, in stable condition, placed on the operative table in supine position, and given general anesthesia. The left arm was prepped and draped in the usual manner for the procedure. On the left lateral forearm, there was a small stellate incision previously made by the emergency room overlying a large subcutaneous abscess. This incision was elongated longitudinally with a 10 blade. Dissection was carried down through the thick and subcutaneous tissue to the muscle fascia. There was a small amount of pus that exuded from the wound and there was some necrotic tissue underneath the subcutaneous tissues and it was dissected away with Bovie cautery. Once this was cleared away, the abscess cavity was well opened for approximately 10 cm longitudinally. The undersurface of the skin and thickened subcutaneous tissue was opened up by digital dissection of the loculations. Once it was wide opened, we copiously irrigated with normal saline, suctioned dry. Hemostasis was obtained with Bovie cautery and the wound was packed with Betadine-soaked gauze sponge and a sterile dressing was applied. Estimated blood loss was 25 mL. Sponge and needle counts were correct x2. The patient was awakened in the operating room, extubated, and transferred to recovery in stable condition. No complications. DICTATING PHYSICIAN: NIMA NEWBY M.D. [id number] PHY#: [id number] ID: [id number] JOB#: [id number] ACCT: [id number] cc:NIMA NEWBY M.D. >
[2018-10-18] MEDS: VANCOMYCIN HCL 1,000 MG in DEXTROSE 5%-WATER 250 ML IV SCH ×2 (14:47→22:05)
[2018-10-18] MEDS: OXYCODONE-ACETAMINOPHEN 5-325 MG TABLET PO PRN (17:47)
[2018-10-18] MEDS: MORPHINE SULFATE 10 MG/ML INJ IV PRN ×2 (19:05→23:52)
[2018-10-18] MEDS: CEFTRIAXONE 1 GM/D5W RTU 1 GM/50 ML RTUPB IV SCH (21:10)
[2018-10-18] MEDS ORDERED: [UNRECOGNIZED DRUG - OTHER] IV SCH (22:00)
[2018-10-18] MEDS ORDERED: CEFTRIAXONE IV SCH (22:00)
[2018-10-19] MEDS: NORMAL SALINE 1000 ML 1,000 ML IV PRN (02:33)
[2018-10-19 05:36] LABS: ABSOLUTE BASOPHILS # (AUTO) 0.1 10^3/uL (0.0-0.2); ABSOLUTE LYMPHOCYTES (AUTO) 1.8 10^3/uL (0.5-4.7); ABSOLUTE MONOCYTES (AUTO) 0.6 10^3/uL (0.1-1.4); ABSOLUTE NEUT (AUTO) 11.5 10^3/uL (1.7-8.2); BASOPHILS % (AUTO) 0.7 % (0-2); EOSINOPHILS % (AUTO) 0.1 % (0-6); HEMOGLOBIN 11.8 g/dL (13.5-17.0); LYMPHOCYTES % (AUTO) 12.9 % (13-45); MEAN CORPUSCULAR HEMOGLOBIN 27.6 pg (27.0-33.4); MEAN CORPUSCULAR HGB CONC 34.7 g/dL (32.0-36.0); MEAN CORPUSCULAR VOLUME 80 fl (80-97); MONOCYTES % (AUTO) 4.1 % (3-13); PLATELET COUNT 290 10^3/uL (150-450); RED BLOOD COUNT 4.28 10^6/uL (4.35-5.55); RED CELL DISTRIBUTION WIDTH 13.1 % (11.5-14.0); SEGMENTED NEUTROPHILS % (AUTO) 82.2 % (42-78); TOTAL CELLS COUNTED % (AUTO) 100 %
[2018-10-19] MEDS: VANCOMYCIN HCL 1,000 MG in DEXTROSE 5%-WATER 250 ML IV SCH ×2 (05:39→14:50)
[2018-10-19] MEDS: OXYCODONE-ACETAMINOPHEN 5-325 MG TABLET PO PRN (05:39)
[2018-10-19 06:18] LABS: ALANINE AMINOTRANSFERASE 26 U/L (21-72); ALBUMIN 3.4 g/dL (3.5-5.0); ALKALINE PHOSPHATASE 69 U/L (38-126); ANION GAP 12 (5-19); ASPARTATE AMINO TRANSFERASE 17 U/L (17-59); BILIRUBIN,DIRECT 0.3 mg/dL (0.0-0.4); BILIRUBIN,TOTAL 0.3 mg/dL (0.2-1.3); BLOOD UREA NITROGEN 12 mg/dL (7-20); CALCIUM 9.2 mg/dL (8.4-10.2); CARBON DIOXIDE 24 mmol/L (22-30); CHLORIDE 104 mmol/L (98-107); GLUCOSE 111 mg/dL (75-110); POTASSIUM 4.3 mmol/L (3.6-5.0); SODIUM 139.9 mmol/L (137-145); TOTAL PROTEIN 6.4 g/dL (6.3-8.2)
[2018-10-19] MEDS: MORPHINE SULFATE 10 MG/ML INJ IV PRN ×3 (08:47→21:47)
--- NOTE | 2018-10-19 09:20 | PDOC PROGRESS REPORT ---
Subjective Progress Note for:: 10/19/18 Subjective:: Some pain at the forearm. Reason For Visit: LEFT FOREARM ABSCESS Physical Exam Vital Signs: Temp Pulse Resp BP Pulse Ox 98.4 F 84 16 111/56 L 100 10/19/18 00:06 10/19/18 00:06 10/19/18 00:06 10/19/18 00:06 10/19/18 00:06 Intake & Output 10/18/18 10/19/18 10/20/18 06:59 06:59 06:59 Intake Total 2997.5 4870 250 Output Total 90 Balance 2907.5 4870 250 Weight 105.1 kg General appearance: PRESENT: no acute distress Respiratory exam: PRESENT: clear to auscultation tanna Cardiovascular exam: PRESENT: RRR Extremities exam: PRESENT: other - Forearm wound looks very clean with no purulent drainage. No surrounding erythema. Results Laboratory Results: 10/19/18 04:45 10/19/18 04:45 10/19/18 10/19/18 04:45 04:45 WBC 14.0 H RBC 4.28 L Hgb 11.8 L Hct 34.0 L MCV 80 MCH 27.6 MCHC 34.7 RDW 13.1 Plt Count 290 Seg Neutrophils % 82.2 H Lymphocytes % 12.9 L Monocytes % 4.1 Eosinophils % 0.1 Basophils % 0.7 Absolute Neutrophils 11.5 H Absolute Lymphocytes 1.8 Absolute Monocytes 0.6 Absolute Eosinophils 0.0 Absolute Basophils 0.1 Sodium 139.9 Potassium 4.3 Chloride 104 Carbon Dioxide 24 Anion Gap 12 BUN 12 Creatinine 0.63 Est GFR ( Amer) > 60 Est GFR (Non-Af Amer) > 60 Glucose 111 H Calcium 9.2 Total Bilirubin 0.3 AST 17 ALT 26 Alkaline Phosphatase 69 Total Protein 6.4 Albumin 3.4 L Impressions: Forearm X-Ray 10/17/18 21:36 IMPRESSION: Soft tissue swelling as above copyright 2011 [employer]- All Rights Reserved Assessment & Plan - Diagnosis (1) Abscess Is this a current diagnosis for this admission?: Yes Plan: Status post debridement. The wound looks very clean. Will start normal saline wet-to-dry dressings and will switch over to wound VAC tomorrow. Wound although not bleeding looks raw and would like to make sure there is good hemostasis before starting the wound VAC.
[2018-10-19] MEDS ORDERED: OXYCODONE-ACETAMINOPHEN 5-325 MG TABLET PO PRN (09:30)
[2018-10-19] MEDS: FAMOTIDINE INJ/PF 20 MG/2 ML SDV IV SCH ×2 (10:20→21:47)
[2018-10-19 14:40] LABS: VANCOMYCIN,TROUGH 8.6 ug/mL (5.0-20.0)
[2018-10-19] MEDS: CEFTRIAXONE 1 GM/D5W RTU 1 GM/50 ML RTUPB IV SCH (21:48)
[2018-10-19] MEDS: VANCOMYCIN HCL 1,500 MG in DEXTROSE 5%-WATER 250 ML IV SCH (21:49)
[2018-10-20] MEDS: VANCOMYCIN HCL 1,500 MG in DEXTROSE 5%-WATER 250 ML IV SCH ×3 (06:33→22:54)
[2018-10-20] MEDS: MORPHINE SULFATE 10 MG/ML INJ IV PRN (07:42)
[2018-10-20] MEDS: FAMOTIDINE INJ/PF 20 MG/2 ML SDV IV SCH ×2 (09:39→22:07)
[2018-10-20] MEDS: OXYCODONE-ACETAMINOPHEN 5-325 MG TABLET PO PRN (09:39)
[2018-10-20] MEDS: IBUPROFEN 800 MG TABLET PO SCH ×2 (13:18→17:13)
--- NOTE | 2018-10-20 17:34 | PDOC PROGRESS REPORT ---
Subjective Progress Note for:: 10/20/18 Reason For Visit: LEFT FOREARM ABSCESS Physical Exam Vital Signs: Temp Pulse Resp BP Pulse Ox 98.4 F 88 18 126/70 H 100 10/20/18 15:23 10/20/18 15:23 10/20/18 15:23 10/20/18 15:23 10/20/18 15:23 Intake & Output 10/19/18 10/20/18 10/21/18 06:59 06:59 06:59 Intake Total 4870 2858 500 Balance 4870 2858 500 Results Laboratory Results: 10/19/18 04:45 10/19/18 04:45 Impressions: Forearm X-Ray 10/17/18 21:36 IMPRESSION: Soft tissue swelling as above copyright 2011 [employer]- All Rights Reserved Assessment & Plan - Diagnosis (1) Abscess Is this a current diagnosis for this admission?: Yes - Plan Summary Plan Summary: This is a 28-year-old male with a forearm abscess, status post incision and drainage. The wound is clean today. Continue with dressing changes. We are currently investigating wound care solutions for home. Partial delayed primary closure may be the patient's best option. Will follow. Continue antibiotics.
[2018-10-20] MEDS: CEFTRIAXONE 1 GM/D5W RTU 1 GM/50 ML RTUPB IV SCH (22:08)
[2018-10-21] MEDS: VANCOMYCIN HCL 1,500 MG in DEXTROSE 5%-WATER 250 ML IV SCH (06:31)
[2018-10-21 06:45] LABS: ABSOLUTE BASOPHILS # (AUTO) 0.1 10^3/uL (0.0-0.2); ABSOLUTE EOSINOPHILS # (AUTO) 0.1 10^3/uL (0.0-0.6); ABSOLUTE LYMPHOCYTES (AUTO) 2.3 10^3/uL (0.5-4.7); ABSOLUTE MONOCYTES (AUTO) 0.6 10^3/uL (0.1-1.4); BASOPHILS % (AUTO) 1.1 % (0-2); EOSINOPHILS % (AUTO) 1.5 % (0-6); HEMATOCRIT 36.2 % (37.9-51.0); HEMOGLOBIN 12.7 g/dL (13.5-17.0); LYMPHOCYTES % (AUTO) 28.9 % (13-45); MEAN CORPUSCULAR HEMOGLOBIN 27.9 pg (27.0-33.4); MEAN CORPUSCULAR HGB CONC 35.1 g/dL (32.0-36.0); MEAN CORPUSCULAR VOLUME 80 fl (80-97); MONOCYTES % (AUTO) 7.1 % (3-13); RED BLOOD COUNT 4.56 10^6/uL (4.35-5.55); SEGMENTED NEUTROPHILS % (AUTO) 61.4 % (42-78); TOTAL CELLS COUNTED % (AUTO) 100 %; WHITE BLOOD COUNT 8.1 10^3/uL (4.0-10.5)
[2018-10-21 07:12] LABS: PLATELET COUNT 242 10^3/uL (150-450)
[2018-10-21] MEDS: IBUPROFEN 800 MG TABLET PO SCH ×3 (07:54→16:44)
[2018-10-21] MEDS: OXYCODONE-ACETAMINOPHEN 5-325 MG TABLET PO PRN (10:14)
[2018-10-21] MEDS: FAMOTIDINE INJ/PF 20 MG/2 ML SDV IV SCH ×2 (10:19→21:55)
[2018-10-21] MEDS: VANCOMYCIN HCL 1,250 MG in DEXTROSE 5%-WATER 250 ML IV SCH ×2 (14:05→21:57)
[2018-10-21] MEDS: CEFTRIAXONE 1 GM/D5W RTU 1 GM/50 ML RTUPB IV SCH (21:56)
[2018-10-22] MEDS: VANCOMYCIN HCL 1,250 MG in DEXTROSE 5%-WATER 250 ML IV SCH (05:49)
[2018-10-22] MEDS: OXYCODONE-ACETAMINOPHEN 5-325 MG TABLET PO PRN (08:01)
[2018-10-22] MEDS ORDERED: LIDOCAINE 1% INJ-PF (10 MG/ML) 30 ML SDV ONE (08:26)
--- NOTE | 2018-10-22 09:03 | PDOC PROGRESS REPORT ---
Subjective Progress Note for:: 10/22/18 Subjective:: left arm feels better Reason For Visit: LEFT FOREARM ABSCESS Physical Exam Vital Signs: Temp Pulse Resp BP Pulse Ox 97.6 F 88 14 173/87 H 100 10/22/18 08:24 10/22/18 08:24 10/22/18 08:24 10/22/18 08:24 10/22/18 08:24 Intake & Output 10/21/18 10/22/18 10/23/18 06:59 06:59 06:59 Intake Total 1723 2135 250 Balance 1723 2135 250 Weight 106.7 kg 105.9 kg General appearance: PRESENT: no acute distress Head exam: PRESENT: normocephalic Eye exam: PRESENT: EOMI Mouth exam: PRESENT: dry mucosa Neck exam: PRESENT: full ROM Respiratory exam: PRESENT: clear to auscultation tanna Cardiovascular exam: PRESENT: RRR Pulses: PRESENT: normal carotid pulses, normal radial pulses, normal femoral pulses Vascular exam: PRESENT: normal capillary refill GI/Abdominal exam: PRESENT: soft Rectal exam: PRESENT: deferred Extremities exam: PRESENT: other - left forearm abscess clean, good granulation Musculoskeletal exam: PRESENT: full ROM Skin exam: PRESENT: dry Results Laboratory Results: 10/21/18 05:52 10/19/18 04:45 Impressions: Forearm X-Ray 10/17/18 21:36 IMPRESSION: Soft tissue swelling as above copyright 2011 [employer]- All Rights Reserved Assessment & Plan - Diagnosis (1) Abscess Is this a current diagnosis for this admission?: Yes (2) Cellulitis Qualifiers: Site of cellulitis: extremity Site of cellulitis of extremity: upper extremity Laterality: left Qualified Code(s): L03.114 - Cellulitis of left upper limb Is this a current diagnosis for this admission?: Yes - Plan Summary Plan Summary: left forarm abscess clean, incision dry with good granulation bed will close with 3-0 nylon ok to dc home today with po keflex for 1 wk will f/u with surgery clinic in a wk. instruction on wound care given to pt.
[2018-10-22] MEDS: IBUPROFEN 800 MG TABLET PO SCH (09:05)
[2018-10-22] MEDS: FAMOTIDINE INJ/PF 20 MG/2 ML SDV IV SCH (09:06)
--- NOTE | 2018-10-22 09:43 | DISCHARGE SUMMARY E ---
Discharge Summary NAME: RIP BERTRAND : 1990 AGE: 28Y ADMITTED: 10/17/2018 DISCHARGED: 10/22/2018 HISTORY: The patient was admitted for an emergency surgery for left forearm abscess. REASON FOR HOSPITALIZATION/HOSPITAL COURSE: This is a 28-year-old male who presented with a history of IVDA, complaining of swelling in the left forearm starting approximately 12 hours prior to admission. He was noted to have an obvious abscess in his left forearm and he was taken to surgery for incision and drainage. He went to surgery and an abscess was drained, and he was admitted to the hospital for IV antibiotics. He had approximately a 15 cm longitudinal incision made in the left forearm and that was packed with open during his hospital course. During his stay, the abscess cavity improved and the base of the wound began granulating and became clean without further evidence of infection. On the day of discharge, the wound was secondarily closed with interrupted 3-0 nylon sutures. He will now be discharged home with a 7-day course of p.o. Keflex and will follow up in the surgery clinic 1 week after discharge for a wound check. He is given wound care instructions to change the dry dressing on top of the wound every day, wash it with soap and water after removing the dressing, and then place a clean gauze dressing on top. He will be given dressing supplies. No other medications other than the antibiotic will be given to him on discharge. DICTATING PHYSICIAN: NIMA NEWBY M.D. [id number] PHY#: [id number] ID: [id number] JOB#: [id number] ACCT: [id number] cc:Timbo MONTALVO MD, M.D. [facility],
[2018-10-22 11:30] VITALS: BP 98/58
--- NOTE | 2018-10-26 10:09 | HISTORY AND PHYSICAL E ---
History and Physical NAME: RIP BERTRAND : 1990 AGE: 28Y ADMITTED: 10/17/2018 ROOM: 406 CONSULTATION DATE: 10/18/18 ATTENDING PHYSICIAN: J Luis Newby MD HISTORY OF PRESENT ILLNESS: The patient is a 28-year-old male with a history of IV drug abuse, presented to the emergency room complaining of swelling in the left arm that started approximately 12 hours prior to his admission in the emergency room. He complained of pain and fever and redness in his left arm for the 12 hours prior. He denies any history of recent injections, however, he stated that he did inject in his left arm approximately 2 weeks ago. PAST MEDICAL HISTORY: Cardiac history is negative, pulmonary medical history is negative, EENT medical history is negative, neurological medical history is negative. PAST SURGICAL HISTORY: He reports none. SOCIAL HISTORY: She has never smoked, however, he has admitted to IV drug abuse. FAMILY HISTORY: Reviewed, not pertinent. PARENTAL FAMILY HISTORY: Reviewed, not pertinent. CHILDREN FAMILY HISTORY: Reviewed, not pertinent. SIBLING FAMILY HISTORY: Reviewed, not pertinent. CURRENT MEDICATIONS: 1. Oxycodone 1 to 2 tablets p.o. q. 6 hours p.r.n. pain. 2. Promethazine 25 mg tablet, 2 tablets p.o. q. 6 p.r.n. nausea. 3. Dicyclomine 20 mg tablet p.o. q.i.d. p.r.n. abdominal pain. ALLERGIES: He has no known allergies which was verified on 04/12/18. REVIEW OF SYSTEMS: CONSTITUTIONAL: He complains of fever and weakness. HEENT: Eyes; reviewed, no vision changes; nose, mouth, and throat no complaints of any sore throat or difficulty swallowing. BREASTS: No complaints of any breast masses. CARDIOVASCULAR: No chest pain. RESPIRATORY: No cough or shortness of breath. GASTROINTESTINAL: No abdominal pain. MUSCULOSKELETAL: He does complain of his left forearm and swelling. NEUROLOGIC: No focal weaknesses. PSYCHIATRIC: No complaints. ENDOCRINE: No cold or heat intolerance. HEMATOLOGIC: No easy bruising. PHYSICAL EXAMINATION: VITAL SIGNS: Temperature is 98.9, pulse ox is 100, his pulse rate is 105, respirations 17, blood pressure 149/89, pulse ox is 93. GENERAL APPEARANCE: He has some mild distress. HEAD: Atraumatic. EYES: Pupils equal, round, and reactive to light and accommodation. Extraocular movements intact. EARS: Normal. No external deformities. MOUTH: Dry mucosa. NECK: Full range of motion. RESPIRATORY: Clear to auscultation bilaterally. CARDIOVASCULAR: Regular rate and rhythm without murmurs. PULSE: Normal radial pulses and normal femoral pulses. VASCULAR: Normal capillary refill. GASTROINTESTINAL AND ABDOMINAL: Soft, nontender, no masses. RECTAL: Exam deferred. EXTREMITIES: His left forearm in the antecubital fossa and on the dorsal medial left forearm there is a large abscess with cellulitis extending from the wrist to the antecubital fossa. There is a stellate incision that was performed by the emergency room doctor with a small clot of blood at the exit site of the stellate incision and on compression there was some pus emanating from the wound. LABORATORY: White count is 10.6, hemoglobin 12.2, hematocrit 34.7, platelet count 266. Chemistries: Sodium was 139.3, potassium 4.4, chloride 98, CO2 is 32, BUN is 15, creatinine 8.84, glucose is 96. X-RAY Shows soft tissue swelling, no fractures. DIAGNOSIS: Cellulitis of the left upper extremity. PLAN: Admission for IV antibiotics, incision and drainage of the left forearm abscess. I discussed the risks and benefits of the procedure with the patient including nerve injury, bleeding, ongoing infection, need for additional surgery, weakness of the hand postop. He understands these risks and benefits and agrees to proceed. DICTATING PHYSICIAN: J LUIS NEWBY M.D. [id number] PHY#: [id number] ID: [id number] JOB#: [id number] ACCT: [id number] cc:NO Timbo PEGUERO
--- NOTE | 2018-10-26 15:22 | DISCHARGE SUMMARY E ---
Discharge Summary NAME: RIP BERTRAND : 1990 AGE: 28Y ADMITTED: 10/17/2018 DISCHARGED: 10/22/2018 ADDENDUM: FINAL DIAGNOSIS: Left forearm abscess. DICTATING PHYSICIAN: NIMA NEWBY M.D. [id number] PHY#: [id number] ID: [id number] JOB#: [id number] ACCT: [id number] cc:[facility]ITAL[facility]ANJAN MD, M.D, GARY M.D. >
== END 2018-10-22 12:11 | disposition home or self-care (01) | DRG 580 ==
LOC: ER 20:53 → EH 23:41 → 4N 10-18 07:37
PROVIDERS: ATTEND Surgery
PROC: 0H9CXZZ Drainage of Left Upper Arm Skin, External Approach (ICD-10-PCS; 2018-10-17)
PROC: 3E0234Z Introduction of Serum, Toxoid and Vaccine into Muscle, Percutaneous Approach (ICD-10-PCS; 2018-10-18)
PROC: 0J9H0ZZ Drainage of Left Lower Arm Subcutaneous Tissue and Fascia, Open Approach (ICD-10-PCS; principal; 2018-10-18 05:30)
DX: L02.414 Cutaneous abscess of left upper limb (principal); L03.116 Cellulitis of left lower limb; Z23 Encounter for immunization; Z86.59 Personal history of other mental and behavioral disorders
CPT/HCPCS: 00400; 36415; 80053; 80202; 85025; 87040; 90715; A6266; J0131; J0696; J1100; J1885; J2250; J2270; J2405; J2704; J2765; J3010; J3370; J3490; J7030; J7060; J7120; S0028

== ENCOUNTER 2019-01-25 12:25 | Emergency (ER) | payer SELFPAY ==
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
[2019-01-25 13:41] LABS: ABSOLUTE BASOPHILS # (AUTO) 0.1 10^3/uL (0.0-0.2); ABSOLUTE LYMPHOCYTES (AUTO) 1.9 10^3/uL (0.5-4.7); ABSOLUTE MONOCYTES (AUTO) 0.4 10^3/uL (0.1-1.4); ABSOLUTE NEUT (AUTO) 4.6 10^3/uL (1.7-8.2); BASOPHILS % (AUTO) 0.8 % (0-2); EOSINOPHILS % (AUTO) 0.4 % (0-6); HEMATOCRIT 37.7 % (37.9-51.0); MEAN CORPUSCULAR HEMOGLOBIN 27.2 pg (27.0-33.4); MEAN CORPUSCULAR HGB CONC 34.4 g/dL (32.0-36.0); MEAN CORPUSCULAR VOLUME 79 fl (80-97); MONOCYTES % (AUTO) 5.3 % (3-13); PLATELET COUNT 244 10^3/uL (150-450); RED BLOOD COUNT 4.77 10^6/uL (4.35-5.55); SEGMENTED NEUTROPHILS % (AUTO) 66.5 % (42-78); TOTAL CELLS COUNTED % (AUTO) 100 %
[2019-01-25 14:08] LABS: ALANINE AMINOTRANSFERASE 48 U/L (21-72); ALBUMIN 4.4 g/dL (3.5-5.0); ALKALINE PHOSPHATASE 73 U/L (38-126); ANION GAP 8 (5-19); ASPARTATE AMINO TRANSFERASE 35 U/L (17-59); BILIRUBIN,DIRECT 0.3 mg/dL (0.0-0.4); BILIRUBIN,TOTAL 0.4 mg/dL (0.2-1.3); BLOOD UREA NITROGEN 17 mg/dL (7-20); CALCIUM 9.2 mg/dL (8.4-10.2); CARBON DIOXIDE 28 mmol/L (22-30); CHLORIDE 104 mmol/L (98-107); GLUCOSE 124 mg/dL (75-110); POTASSIUM 4.1 mmol/L (3.6-5.0); SODIUM 139.6 mmol/L (137-145); TOTAL PROTEIN 7.9 g/dL (6.3-8.2)
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
[2019-01-25 14:43] LABS: APPEARANCE,URINE CLEAR; BILIRUBIN,URINE NEGATIVE (NEGATIVE); COLOR,URINE YELLOW; GLUCOSE, URINE NEGATIVE (NEGATIVE); KETONES,URINE NEGATIVE (NEGATIVE); LEUKOCYTE ESTERASE,URINE NEGATIVE (NEGATIVE); NITRITE,URINE NEGATIVE (NEGATIVE); PROTEIN,URINE NEGATIVE (NEGATIVE); URINE SPECIFIC GRAVITY 1.039; UROBILINOGEN,URINE NEGATIVE mg/dL (<2.0)
[2019-01-25 14:58] LABS: URINE AMPHETAMINES SCREEN UNCONFIRMED POSITIVE; URINE BARBITURATES SCREEN NEGATIVE; URINE BENZODIAZEPINES SCREEN NEGATIVE; URINE COCAINE SCREEN NEGATIVE; URINE MARIJUANA (THC) SCREEN NEGATIVE; URINE METHADONE SCREEN NEGATIVE; URINE PHENCYCLIDINE SCREEN NEGATIVE
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
[2019-01-25 16:40] VITALS: BP 112/65
== END 2019-01-25 16:45 | disposition home or self-care (01) ==
LOC: ER 12:25
DX: S39.91XA Unspecified injury of abdomen, initial encounter (principal); S20.219A Contusion of unspecified front wall of thorax, initial encounter; V68.0XXA Driver of heavy transport vehicle injured in noncollision transport accident in nontraffic accident, initial encounter; R31.29 Other microscopic hematuria; Y92.79 Other farm location as the place of occurrence of the external cause; R41.3 Other amnesia; Z87.442 Personal history of urinary calculi
CPT/HCPCS: 36415; 71046; 74177; 80053; 80307; 81001; 85025; 99284

== ENCOUNTER 2020-05-29 17:50 | Emergency (ER) | payer SELFPAY ==
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
[2020-05-29 19:24] LABS: APPEARANCE,URINE CLOUDY; BILIRUBIN,URINE NEGATIVE (NEGATIVE); COLOR,URINE AMBER; GLUCOSE, URINE NEGATIVE (NEGATIVE); KETONES,URINE NEGATIVE (NEGATIVE); LEUKOCYTE ESTERASE,URINE NEGATIVE (NEGATIVE); NITRITE,URINE NEGATIVE (NEGATIVE); PROTEIN,URINE NEGATIVE (NEGATIVE); URINE SPECIFIC GRAVITY 1.023
[2020-05-29 19:35] LABS: URINE AMPHETAMINES SCREEN NEGATIVE; URINE BARBITURATES SCREEN NEGATIVE; URINE COCAINE SCREEN NEGATIVE; URINE MARIJUANA (THC) SCREEN NEGATIVE; URINE METHADONE SCREEN NEGATIVE; URINE PHENCYCLIDINE SCREEN NEGATIVE
[2020-05-29 19:38] LABS: URINE BENZODIAZEPINES SCREEN UNCONFIRMED POSITIVE
--- NOTE | 2020-05-29 20:35 | RADIOLOGY REPORT (SQ) ---
EXAM DESCRIPTION: US SCROTUM COMPLETED DATE/TME: 05/29/2020 18:32 CLINICAL HISTORY: 30 years, Male, Pelvic and scrotal pain on the left COMPARISON: None. FINDINGS: Testicles are normal in size and echotexture. No suspicious focal lesions. Both demonstrate vascularity. There is no significant hydrocele. Epididymides are normal in size and echotexture. Both groins were scanning unremarkable. No suspicious scrotal wall thickening. IMPRESSION: Unremarkable scrotal ultrasound.
[2020-05-29 20:43] LABS: CHLAM PCR NOT DETECTED (NOT DETECT)
--- NOTE | 2020-05-29 23:09 | ER Document Report ---
ED General - General Chief Complaint: Groin Pain Stated Complaint: TESTICULAR/GROIN PAIN Time Seen by Provider: 05/29/20 18:25 Mode of Arrival: Wheelchair TRAVEL OUTSIDE OF THE [place] IN LAST 30 DAYS: No - HPI Notes: Patient is a 30-year-old male with no medical history who presents with left testicle and groin pain that began 6 days ago. Patient describes the pain as sharp and increased with walking and coughing. Patient endorses constipation with the last bowel movement about 4 days ago but states this is typical for him and he is normally on stool softeners. He denies nausea, vomiting, abdominal pain, dysuria, fever, and penile discharge. He denies tobacco and alcohol use but endorses prior fentanyl use. He denies using any fentanyl recently. - Related Data Allergies/Adverse Reactions: No Known Allergies Allergy (Verified 05/29/20 20:42) Past Medical History - General Information source: Patient - Social History Smoking Status: Never Smoker Frequency of alcohol use: None Drug Abuse: Prescription drugs Family History: Reviewed & Not Pertinent, Other - No family history of kidney stones Renal/ Medical History: Reports: Hx Kidney Stones. Denies: Hx Peritoneal Dialysis Psychiatric Medical History: Denies: Hx Depression Review of Systems - Review of Systems Constitutional: No symptoms reported EENT: No symptoms reported Cardiovascular: No symptoms reported Respiratory: No symptoms reported Gastrointestinal: See HPI Genitourinary: No symptoms reported Male Genitourinary: See HPI Musculoskeletal: No symptoms reported Skin: No symptoms reported Hematologic/Lymphatic: No symptoms reported Neurological/Psychological: No symptoms reported Physical Exam - Vital signs Vitals: Temp Pulse Resp BP Pulse Ox 97.8 F 108 H 18 135/83 H 98 05/29/20 17:59 05/29/20 17:59 05/29/20 17:59 05/29/20 17:59 05/29/20 17:59 - Notes Notes: PHYSICAL EXAMINATION: VITALS: Vitals reviewed - tachycardia. GENERAL: Well-appearing, well-nourished and in no acute distress. HEAD: Atraumatic, normocephalic. EYES: Pupils equal, round, and reactive to light, extraocular movements intact, sclera anicteric, conjunctiva are normal. ENT: Nares patent. Moist mucous membranes. NECK: Normal range of motion, supple without lymphadenopathy. LUNGS: Breath sounds clear to auscultation bilaterally and equal. No wheezes, rales, or rhonchi. HEART: Regular, rate, and rhythm without murmurs. ABDOMEN: Soft, nontender, normoactive bowel sounds. No guarding, no rebound. No masses appreciated. No CVA tenderness. MALE GENITOURINARY: Normal appearing genitalia with no lesions or ulcerations. Nontender testicles. No palpable hernia. No penile discharge. EXTREMITIES: Normal range of motion, no pitting or edema. No cyanosis. NEUROLOGICAL: No focal neurological deficits. Moves all extremities spontaneously and on command. PSYCH: Normal mood, normal affect. SKIN: Warm, Dry, normal turgor, no rashes or lesions noted. Course - Re-evaluation Re-evalutation: Patient is a 30-year-old male who presents with left testicle and groin pain that began 6 days ago. Patient tachycardic but vital signs are otherwise unremarkable. On exam, normal appearing genitalia with no visible lesions. No palpable hernias or testicular tenderness. UA shows increased [place] gravity of 1.023 and increased urobilinogen of 4. UDS is positive for benzodiazepine. Urine gonorrhea and chlamydia is negative. Scrotal ultrasound is negative and demonstrates vascularity to both testicles. I spoke with my supervising physician, Dr. Del Rosario, concerning this patient and she recommends giving the patient 60mg IM toradol for relief and prompt follow up with primary care. [employer] Aware reviewed and no recent prescriptions for narcotics. Patient notes some improvement after toradol. Based on presentation and work up, I have a low suspicion for testicular torsion, epididymitis, STD, hernia, kidney stone, and UTI. I recommended the patient follow-up promptly with primary care, as well as, take ibuprofen and Tylenol as needed for pain. Patient will be discharged home. Patient understands and is in agreement with plan. - Vital Signs Vital signs: Temp Pulse Resp BP Pulse Ox 99.9 F 122 H 18 135/98 H 94 05/29/20 22:00 05/29/20 22:00 05/29/20 17:59 05/29/20 22:00 05/29/20 22:00 - Laboratory Laboratory results interpreted by me: 05/29/20 18:32 Urine Urobilinogen 4.0 H Discharge - Discharge Clinical Impression: Left groin pain Testicle pain Qualifiers: Laterality: left Qualified Code(s): N50.812 - Left testicular pain Condition: Stable Disposition: HOME, SELF-CARE Additional Instructions: Testicular Pain Sometimes we can't prove the exact cause of testicle pain. Pain in the testicle can be caused by many different problems, including viral infections of the testicle, urinary tract infection, kidney stones, inflammation of the epididymis (the sac behind the testicle), hernia, dilated veins in the scrotum, or subtle injury. The most serious causes of testicular pain are tumor or twisting of the testicle. An ultrasound exam often shows what's wrong. When the initial testing doesn't show a cause for the pain, we usually refer to a urologist. Rest. Gentle warmth may help with symptoms. It's usually helpful to wear underwear that gives good support to the testicles ("briefs" instead of "boxers"). Alternate with tylenol and ibuprofen as needed for pain. Make sure to follow the instructions on the bottle and take them as directed. Call your primary care provider or return if there is sudden worsening of pain, fever, vomiting, testicle swelling, or discoloration of the scrotum. Referrals: [facility] [Provider Group] - Follow up as needed
[2020-05-30] MEDS ORDERED: KETOROLAC TROMETHAMINE 60 MG/2 ML SDV IM ONE (00:15)
[2020-05-30 01:24] VITALS: BP 132/90
== END 2020-05-30 01:41 | disposition home or self-care (01) ==
LOC: ER 17:50
DX: N50.812 Left testicular pain (principal); R10.30 Lower abdominal pain, unspecified; K59.00 Constipation, unspecified; F19.10 Other psychoactive substance abuse, uncomplicated; Z87.442 Personal history of urinary calculi
CPT/HCPCS: 99285; 96372; 87086; 81001; 80307; 87491; 87591; 76870; 93976; J1885